=== PATIENT | female | born 1960 | race Caucasian/White ===

== ENCOUNTER 2018-08-01 01:29 | Outpatient (CLI) | payer BC, SELFPAY ==
[2018-08-01 07:42] LABS: HCT 40.4 % (36.0-46.0); HGB 13.1 g/dL (12.0-15.5); Mean Corp. HGB Concentration 32.4 g/dL (32.0-36.0); Mean Corpuscular Volume 83.3 fL (80-95); Mean Platelet Volume 9.5 fL (8.0-11.0); Platelet Count 313 x1000/uL (130-400); RBC 4.85 m/cumm (4.00-5.20); RBC Distribution Width 13.4 % (11.7-14.6); White Blood Cell Count 4.63 k/cumm (4.4-10.8)
[2018-08-01 08:13] LABS: BUN 21 mg/dL (7-18); CREATININE 0.82 mg/dL (0.55-1.02); Calcium 9.5 mg/dL (8.5-10.1); Chloride 103 mmol/L (98-107); Cholesterol 240 mg/dL (50-200); Glucose 86 mg/dL (70-100); HDL Cholesterol 65 mg/dL (40-60); LDL CHOLESTEROL 164 mg/dL (<100); Potassium 4.1 mmol/L (3.5-5.1); Sodium 140 mmol/L (136-145); Triglyceride 68 mg/dL (30-150)
[2018-08-01 16:50] LABS: Hemoglobin A1C 5.9 % (4.5-6.2)
== END 2018-08-01 01:49 ==
PROVIDERS: PCP Family Medicine; Visit Provider Family Medicine
DX: Z00.00 Encounter for general adult medical examination without abnormal findings (principal); I10 Essential (primary) hypertension; Z13.1 Encounter for screening for diabetes mellitus
CPT/HCPCS: 36415; 80048; 80061; 83721; 85027; 83036

== ENCOUNTER 2019-08-06 18:03 | Outpatient (REF) | payer BC, SELFPAY ==
--- NOTE | 2019-08-06 16:30 | PAPFT_PTH ---
PATIENT: Ryanne Mix LOC: [facility] U#:[id number] AGE/SX: 59/F ROOM: RE08/06/[address]: Nelda Shields, PhD [employer] OPERATOR : 1960 BED: DIS: 08/06/2019 SPEC #: [id number] RECD: 08/07/19 13:13 STATUS: BRIANA REJackie #: [id number] NIKOLAY: 08/06/19 16:[address]: Nelda Shields DEPT: [facility] Cytology RECD BY: Erin Sinclair ENTERED: 08/07/19 13:13 SP TYPE: PAPFT OTHR DR: John Zheng MD Tissues: 1 - CX/ENDOCX FOR PAP SMEARS Procedures: PAP THIN PREP/[facility] Screening HPV DNA PROBE Comments: [id number] (CHLAMYDIA/GC)
[2019-08-10 15:47] LABS: Chlamydia Result Negative (Negative); GC Result Negative (Negative)
== END 2019-08-06 18:23 ==
LOC: LBN 18:03
PROVIDERS: PCP Family Medicine; Visit Provider Nurse Practitioner
DX: Z12.4 Encounter for screening for malignant neoplasm of cervix (principal); Z11.3 Encounter for screening for infections with a predominantly sexual mode of transmission
CPT/HCPCS: 87491; 87591; 88142; 87624

== ENCOUNTER 2022-05-25 10:29 | Outpatient (CLI) | payer BC, SELFPAY ==
[2022-05-25 13:06] LABS: ALT 22 U/L (14-59); AST 24 U/L (15-37); Albumin 3.7 g/dL (3.4-5.0); Alkaline Phosphatase 57 U/L (46-116); BUN 18 mg/dL (7-18); Bilirubin, Total 0.4 mg/dL (0.2-1.0); CREATININE 0.7 mg/dL (0.55-1.02); Calcium 9.1 mg/dL (8.5-10.1); Calculated LDL 164 mg/dL (<100); Chloride 105 mmol/L (98-107); Cholesterol 241 mg/dL (<200); Estimated GFR 96.52 (mL/min/1.73m2); Glucose 98 mg/dL (74-106); HDL Cholesterol 68 mg/dL (40-60); Potassium 4.6 mmol/L (3.5-5.1); Sodium 142 mmol/L (136-145); Total Protein 7.8 g/dL (6.4-8.2); Triglyceride 49 mg/dL (<150)
== END 2022-05-25 10:30 | disposition home or self-care (01) ==
LOC: LOS 10:33
PROVIDERS: PCP Nurse Practitioner Family; Visit Provider Nurse Practitioner Family
DX: E78.5 Hyperlipidemia, unspecified (principal)
CPT/HCPCS: 36415; 80053; 80061

== ENCOUNTER 2024-01-27 02:24 | Outpatient (CLI) | payer MEDICARE, SELFPAY ==
--- NOTE | 2024-01-28 13:45 | DI.RAD_ITS ---
Exam(s) XR HIP RT COMPLETE AP PELVIS EXAM: XR HIP RT COMPLETE AP PELVIS CLINICAL HISTORY: please include [place] view, rt hip pain, M25.551. TECHNIQUE: 2D digital imaging was performed. Two views COMPARISON: No exams were available for comparison FINDINGS: BONES: No acute fracture is present. No bony destructive lesion is seen. JOINTS: No dislocation present. Hip joint spaces are maintained. Minimal periarticular spurring. SOFT TISSUE: Calcification in the soft tissues of the left upper thigh. IMPRESSION: Minimal degenerative changes. DATA REPOSITORY: RADIATION DOSE DELIVERED:
== END 2024-01-27 02:44 ==
LOC: DI 02:24
PROVIDERS: PCP Nurse Practitioner Family; Visit Provider Nurse Practitioner Family
DX: M25.551 Pain in right hip (principal)
CPT/HCPCS: 73502

== ENCOUNTER 2024-01-28 16:18 | Outpatient (CLI) | payer MEDICARE, SELFPAY ==
--- NOTE | 2024-01-16 12:15 | DI.CT_ITS ---
Exam(s) CT ABDOMEN PELVIS W EXAM: CT ABDOMEN PELVIS W CLINICAL HISTORY: R10.31, M25.551 hx of hernia, concern for obturator hernia. TECHNIQUE: Imaging Protocol: Axial computed tomography images with coronal and sagittal reformatted images were created and reviewed CONTRAST MATERIAL: Intravenous: Omnipaque-350 100cc Oral: Yes. Oral contrast was also administered for bowel opacification. COMPARISON: No exams were available for comparison FINDINGS: VISUALIZED LUNG BASES: No nodules nor pleural effusions evident. ABDOMEN: There is no ascites. LIVER: There are no focal hepatic lesions evident. No dilated intrahepatic ducts. GALLBLADDER/BILIARY: No obvious gallbladder pathology. CBD is not dilated. PANCREAS: No evidence of pancreatic mass nor dilatation of the pancreatic duct. SPLEEN: Spleen is not enlarged. No obvious intrasplenic lesions. Splenic and portal veins are paten t. ADRENALS: There are no significant adrenal masses. KIDNEYS:No cysts evident. No solid renal masses. No calculi nor hydronephrosis.. ABDOMINAL AORTA: Abdominal aorta is not enlarged. LYMPH NODES:There is no retroperitoneal nor paraaortic adenopathy. ABDOMINAL WALL: No evidence of significant anterior abdominal wall nor inguinal hernia. There is no evidence of obvious obturator hernia, as per request. GI: There is no evidence of bowel obstruction, free air, nor abscess. PELVIS: GI: No evidence of appendicitis.No evidence of sigmoid diverticulitis. LYMPH NODES: There is no intrapelvic nor inguinal adenopathy. REPRODUCTIVE: Age-appropriate URINARY BLADDER: No calculi nor obvious masses evident OSSEOUS: No fractures and no significant osseous lesions. IMPRESSION: 1. No significant acute findings in the abdomen and pelvis. 2. No evidence of obturator hernia with no evidence bowel herniation between the obturator and the pe ctineus muscles. RADIATION DOSE DELIVERED: Total DLP DATA REPOSITORY: All CT scans at this facility are submitted to the National Radiology Data Registry (NRDR) Dose Index Registry (DIR) with the [employer] ([employer]). RADIATION OPTIMIZATION: All CT scans at this facility use at least one of these dose optimization te chniques: automated exposure control; mA and/or kV adjustment per patient size (includes targeted exa ms where dose is matched to clinical indication); or iterative reconstruction.
[2024-01-16 12:50] LABS: CREATININE 0.8 mg/dL (0.55-1.02); Estimated GFR 81.72 (mL/min/1.73m2)
[2024-01-16] MEDS: Omnipaque 350 MG/ML 500 ML BTL-Imaging package IJ (15:03)
[2024-01-16] MEDS: Normal Saline - Diluent 50 ML VIAL IJ (15:07)
[2024-01-16] MEDS: Barium Sulfate 2% W/V-Creamy Vanilla Smoothie 450 ML BTL PO ×2 (15:08→15:09)
== END 2024-01-28 16:38 ==
PROVIDERS: PCP Nurse Practitioner Family; Visit Provider Nurse Practitioner Family
DX: Z00.00 Encounter for general adult medical examination without abnormal findings (principal); R10.31 Right lower quadrant pain
CPT/HCPCS: 74177; 82565

== ENCOUNTER 2024-07-20 12:00 | Outpatient (CLI) | payer MEDICARE, SELFPAY ==
--- NOTE | 2024-07-20 11:30 | DI.RAD_ITS ---
Exam(s) XR CHEST 2V PA LATERAL EXAM: XR CHEST 2V PA LATERAL CLINICAL HISTORY: Cough, R05.9, and fever TECHNIQUE: 2D digital imaging was performed of the chest. Two images were obtained. PA and lateral views were obtained. COMPARISON: No exams were available for comparison FINDINGS: MEDIASTINUM: Normal. HEART: Normal. PULMONARY VASCULATURE: Normal. LUNGS: There appears to be scarring in the apices bilaterally. The lungs are hyperinflated suggestin g underlying COPD. No focal consolidating infiltrates are seen. PLEURAL SPACE: No pleural effusion or pneumothorax. BONE:Within normal limits for the patient's age. OTHER FINDINGS:Normal. IMPRESSION: 1. No acute pulmonary findings. 2. Hyperinflation of the lungs consistent with underlying COPD. 3. Apparent scarring in the lung apices. A nonemergent CT scan of the chest should be considered for further characterization of the lungs. Unexpected findings DATA REPOSITORY: RADIATION DOSE DELIVERED:
== END 2024-07-20 12:20 ==
LOC: DI 12:01
PROVIDERS: PCP Nurse Practitioner Family; Visit Provider Nurse Practitioner Family
DX: R91.8 Other nonspecific abnormal finding of lung field; J44.9 Chronic obstructive pulmonary disease, unspecified
CPT/HCPCS: 71046

== ENCOUNTER 2024-09-28 00:47 | Outpatient (CLI) | payer MEDICARE, SELFPAY ==
[2024-09-28] MEDS: Levalbuterol HFA 15 GM INH 4 PUFF IH (16:36)
[2024-09-28] MEDS: Inhaler, Assist Device 1 EACH MC (16:36)
--- NOTE | 2024-10-05 21:09 | W.PFT ---
Date of service: 09/28/24 Time of Service: 15:03 Pulmonary Function Test Result Indications: Cough Interpretation Spirometry: No airflow limitation. No bronchodilator response. Lung Volumes: Normal volumes Diffusion Capacity: Normal diffusion Airway Pressure: Normal airways resistance Impression Normal pulmonary function testing Clinical Correlation therefore is recommended.
== END 2024-09-28 00:48 | disposition home or self-care (01) ==
LOC: RT 00:47
PROVIDERS: PCP Nurse Practitioner Family; Visit Provider Student in an Organized Health Care Education/Training Program
DX: R05.9 Cough, unspecified (principal)
CPT/HCPCS: 94060; 94726; 94729

== ENCOUNTER 2024-12-28 12:22 | Outpatient (REF) | payer MEDICARE, SELFPAY ==
--- NOTE | 2024-12-28 11:30 | PAPFT_PTH ---
PATIENT: Ryanne Mix LOC: [facility] U#:[id number] AGE/SX: 64/F ROOM: RE12/28/[address]: Law Faust DNP : 1960 BED: DIS: 12/28/2024 SPEC #: [id number] RECD: 12/29/24 13:10 STATUS: BRIANA REJackie #: [id number] NIKOLAY: 12/28/24 11:[address]: Law Yee DEPT: [facility] Cytology RECD BY: Erin Sinclair Tissues: 1 - CX/ENDOCX FOR PAP SMEARS Procedures: PAP THIN PREP/[facility] Screening HPV DNA PROBE Comments: [id number] (HPV 16 & 18/45)
== END 2024-12-28 12:23 | disposition home or self-care (01) ==
LOC: LBN 12:22
PROVIDERS: PCP Nurse Practitioner Family; Visit Provider Nurse Practitioner Family
DX: Z12.4 Encounter for screening for malignant neoplasm of cervix (principal)
CPT/HCPCS: 88142; 87624

== ENCOUNTER 2025-01-22 18:57 | Outpatient (CLI) | payer MEDICARE, SELFPAY ==
--- NOTE | 2025-01-22 14:11 | DI.RAD_ITS ---
Exam(s) XR KNEE LT 3V AP,LAT,DAPHNE EXAM: XR KNEE LT 3V AP,LAT,DAPHNE CLINICAL HISTORY: continued pain, L KNEE PAIN M25.562. TECHNIQUE: 2D digital imaging was performed. Three views. COMPARISON: No exams were available for comparison FINDINGS: BONES: No acute fracture is present. No bony destructive lesion is seen. Enthesophyte at the upper pole of the patella. JOINTS: The knee is normally aligned. No joint effusion is seen. The joint spaces are maintained. SOFT TISSUE: Normal. IMPRESSION: No acute abnormality. DATA REPOSITORY: RADIATION DOSE DELIVERED:
== END 2025-01-22 19:17 ==
LOC: DI 18:58
PROVIDERS: PCP Nurse Practitioner Family; Visit Provider Nurse Practitioner Family
DX: M25.562 Pain in left knee (principal)
CPT/HCPCS: 73562

== ENCOUNTER 2025-05-21 11:30 | Outpatient (CLI) | payer MEDICARE, SELFPAY ==
[2025-05-21 11:48] LABS: HCT 39.6 % (36.0-46.0); HGB 12.5 g/dL (11.2-15.7); MCH 26.4 pg (27.0-33.0); MCHC 31.6 % (32.0-36.0); MCV 84 fL (80-95); MPV 9.4 fL (8.0-11.0); Platelet Count 313 10^3/uL (130-400); RBC 4.73 10^6/uL (3.93-5.22); RDW 12.9 % (11.7-14.6); RDW-SD 39.8 fL; WBC 5.04 10^3/uL (4.4-10.8)
[2025-05-26 14:33] LABS: Apolipoprotein B, Serum 126 mg/dL (48-124); Beta VLDL Cholesterol Not Detected mg/dL (<15); Beta VLDL Triglycerides Not Detected mg/dL (<15); Cholesterol, Total, CDC 266 mg/dL; Chylomicron Cholesterol Not Detected; Chylomicron Triglycerides Not Detected; HDL Cholesterol, CDC 58 mg/dL (>=50); LpX Not detected; Triglycerides, CDC 102 mg/dL; VLDL Triglycerides 48 mg/dL (<120)
== END 2025-05-21 11:31 | disposition home or self-care (01) ==
LOC: LBO 11:31
PROVIDERS: PCP Nurse Practitioner Family; Visit Provider Nurse Practitioner Family
DX: R06.02 Shortness of breath (principal); E78.5 Hyperlipidemia, unspecified
CPT/HCPCS: 36415; 80061; 85027; 82172; 82664